=== PATIENT | male | born 1940 | race Caucasian/White ===

== ENCOUNTER 2018-10-06 15:55 | Inpatient (IN) | payer MEDICAID, MEDICARE ==
[~2018-10-06] VITALS: Ht 182.9 cm; Wt 77.1 kg
[2018-10-06 16:24] LABS: BASOPHILS # (AUTO) 0.1 K/uL (0.0-8.0); BASOPHILS % (AUTO) 0.8 % (0.0-2.0); EOSINOPHILS # (AUTO) 0.1 K/uL (0.0-0.7); EOSINOPHILS % (AUTO) 0.5 % (0.0-7.0); HEMATOCRIT 49.2 % (36.7-47.1); HEMOGLOBIN 16.7 g/dL (12.5-16.3); LYMPHOCYTES # (AUTO) 2.1 K/uL (20.0-40.0); LYMPHOCYTES % (AUTO) 21.7 % (20.5-51.5); MEAN CORPUSCULAR HEMOGLOBIN 35.1 uug (23.8-33.4); MEAN CORPUSCULAR HGB CONC 34 g/dL (32.5-36.3); MEAN CORPUSCULAR VOLUME 103.8 fL (73.0-96.2); MONOCYTES # (AUTO) 1.2 K/uL (2.0-10.0); MONOCYTES % (AUTO) 12.1 % (0.0-11.0); NEUTROPHILS # (AUTO) 6.4 K/uL (1.8-8.9); NEUTROPHILS % (AUTO) 64.9 % (38.5-71.5); PLATELET COUNT (AUTO) 165 K/uL (152-348); RED BLOOD CELL COUNT(AUTO) 4.74 MIL/uL (4.06-5.63); WHITE BLOOD COUNT (AUTO) 9.9 K/uL (3.6-10.2)
[2018-10-06] MEDS ORDERED: TAMS-3 PO (16:30)
[2018-10-06] MEDS ORDERED: DIGO250T PO (16:30)
[2018-10-06] MEDS ORDERED: LISI10TA5 PO (16:30)
[2018-10-06] MEDS ORDERED: FLUT1DIS27 IH (16:30)
[2018-10-06] MEDS ORDERED: DILT240C2 PO (16:30)
[2018-10-06] MEDS ORDERED: DIVA500T2 PO (16:30)
[2018-10-06] MEDS ORDERED: COLC0.6C3 PO (16:30)
[2018-10-06] MEDS ORDERED: ACET-2154 PO ×2 (16:38→17:37)
[2018-10-06] MEDS ORDERED: RIVA20TA PO (16:38)
[2018-10-06] MEDS ORDERED: IPRA3AMP23 IH (16:38)
[2018-10-06] MEDS ORDERED: DIVA125T2 PO (16:38)
[2018-10-06 16:42] LABS: CARBON DIOXIDE 28 mmol/L (21-32); CHLORIDE 103 mmol/L (98-107); CREATININE 2.1 mg/dL (0.6-1.3); GLUCOSE 98 mg/dL (74-106); POTASSIUM 5.1 mmol/L (3.5-5.1); UREA NITROGEN, BLOOD 33 mg/dL (7-18)
[2018-10-06 16:52] LABS: ALANINE AMINOTRANSFERASE 35 U/L (16-63); ALKALINE PHOSPHATASE 56 U/L (50-136); ASPARTATE AMINOTRANSFERASE 32 U/L (15-37); BILIRUBIN,DIRECT 0.2 mg/dL (0.0-0.2); BILIRUBIN,TOTAL 0.7 mg/dL (0.2-1.0); TOTAL PROTEIN, SERUM 8.4 g/dL (6.4-8.2)
[2018-10-06 16:54] LABS: ETHANOL < 3 MG/DL (0-0)
[2018-10-06 16:55] LABS: ACETAMINOPHEN < 2.0 ug/mL (10-30)
--- NOTE | 2018-10-06 17:35 | NUR ---
PT IS IN ROOM #1A. DR VASQUEZ EVALUATED THE PT.
[2018-10-06] MEDS ORDERED: BISA10SU11 RC (17:37)
[2018-10-06] MEDS ORDERED: MAGN400O6 PO (17:37)
[2018-10-06] MEDS ORDERED: LOPE2CAP PO (17:37)
[2018-10-06] MEDS ORDERED: MELA5TAB PO (17:37)
[2018-10-06] MEDS ORDERED: MAG355OR18 PO (17:37)
--- NOTE | 2018-10-06 19:04 | NUR ---
PT WAS EVALUATED BY CRISIS STUDIO MANAGER VANESSA MORALES. PT IS GOING TO BE PLACED TO MHU VOLUNTARY ADMISSION. REPORT GIVEN TO ETHANOL QUALITY LEADER RN.
[2018-10-06] MEDS ORDERED: MAG HYDROX/AL HYDROX/SIMETH 30 ML LIQUID UDC PO PRN (20:15)
[2018-10-06] MEDS ORDERED: ACETAMINOPHEN 325 MG TABLET PO PRN (20:15)
[2018-10-06] MEDS ORDERED: MAGNESIUM HYDROXIDE 30 ML LIQUID UDC PO PRN (20:15)
[2018-10-06 20:30] VITALS: BP 103/69
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
[2018-10-06] MEDS: TEMAZEPAM 7.5 MG CAPSULE PO PRN (21:47)
[2018-10-06] MEDS ORDERED: Medication Not On Formulary EA (Rivaroxaban (Xarelto) 10 MG) PO SCH (22:00)
[2018-10-06] MEDS ORDERED: BISACODYL 10 MG SUPP.RECT RC PRN (22:00)
[2018-10-07 08:05] VITALS: BP 144/94
[2018-10-07 08:28] LABS: BASOPHILS # (AUTO) 0.1 K/uL (0.0-8.0); BASOPHILS % (AUTO) 0.7 % (0.0-2.0); EOSINOPHILS # (AUTO) 0.1 K/uL (0.0-0.7); EOSINOPHILS % (AUTO) 1.1 % (0.0-7.0); HEMATOCRIT 48.5 % (36.7-47.1); HEMOGLOBIN 16.4 g/dL (12.5-16.3); LYMPHOCYTES % (AUTO) 27.1 % (20.5-51.5); MEAN CORPUSCULAR HEMOGLOBIN 35.3 uug (23.8-33.4); MEAN CORPUSCULAR HGB CONC 34 g/dL (32.5-36.3); MEAN CORPUSCULAR VOLUME 104.5 fL (73.0-96.2); MONOCYTES # (AUTO) 1.4 K/uL (2.0-10.0); MONOCYTES % (AUTO) 12.7 % (0.0-11.0); NEUTROPHILS # (AUTO) 6.4 K/uL (1.8-8.9); NEUTROPHILS % (AUTO) 58.4 % (38.5-71.5); PLATELET COUNT (AUTO) 166 K/uL (152-348); RED BLOOD CELL COUNT(AUTO) 4.64 MIL/uL (4.06-5.63); WHITE BLOOD COUNT (AUTO) 10.9 K/uL (3.6-10.2)
[2018-10-07 08:43] LABS: ALANINE AMINOTRANSFERASE 34 U/L (16-63); ALKALINE PHOSPHATASE 53 U/L (50-136); ASPARTATE AMINOTRANSFERASE 30 U/L (15-37); BILIRUBIN,TOTAL 0.8 mg/dL (0.2-1.0); CARBON DIOXIDE 27 mmol/L (21-32); CHLORIDE 104 mmol/L (98-107); CHOLESTEROL 232 mg/dL (<200); CREATININE 1.8 mg/dL (0.6-1.3); GLUCOSE 86 mg/dL (74-106); GLUCOSE FASTING 86 mg/dL (70-115); HDL CHOLESTEROL 44 mg/dL (40-60); MAGNESIUM 1.9 mg/dL (1.8-2.4); POTASSIUM 4.4 mmol/L (3.5-5.1); TOTAL PROTEIN, SERUM 8.3 g/dL (6.4-8.2); TRIGLYCERIDES 130 MG/DL (30-150); UREA NITROGEN, BLOOD 31 mg/dL (7-18)
[2018-10-07 08:48] LABS: THYROID STIMULATING HORMONE 8.601 mIU/mL (0.358-3.740)
[2018-10-07] MEDS: DIVALPROEX 125 MG TABLET.DR PO SCH ×2 (08:52→17:27)
[2018-10-07] MEDS: FLUTICASONE/VILANTEROL 1 EACH BLST.W.DEV INH SCH (08:53)
[2018-10-07] MEDS: DILTIAZEM HCL CD 240 MG CAP.SR.24H PO SCH (08:53)
[2018-10-07] MEDS ORDERED: DIGOXIN 250 MCG TABLET PO SCH (09:00)
[2018-10-07] MEDS ORDERED: DIVALPROEX 125 MG TABLET.DR PO SCH (09:00)
[2018-10-07 10:33] LABS: DIGOXIN 1.1 ng/mL (0.9-2.0)
[2018-10-07] MEDS: DIGOXIN 250 MCG TABLET PO SCH (13:02)
[2018-10-07 15:14] VITALS: BP 142/91
[2018-10-07] MEDS: RIVAROXABAN 10 MG TABLET PO SCH (17:28)
[2018-10-07 19:12] LABS: *BILIRUBIN,URIN NEGATIVE (NEGATIVE); *BLOOD, URINE NEGATIVE (NEGATIVE); *CLARITY,URINE CLEAR (CLEAR); *COLOR,URINE YELLOW (YELLOW); *KETONES,URINE NEGATIVE (NEGATIVE); *UROBILINOGEN,URINE 0.2 E.U./dl (NORMAL); LEUKOCYTE ESTERASE ,URINE NEGATIVE (NEGATIVE); NITRITE, URINE NEGATIVE (NEGATIVE); PH,URINE 5.5 (5.0-8.0); UGLUCOSE NEGATIVE (NEGATIVE)
[2018-10-07 19:26] LABS: *AMPHETAMINE, URINE NEGATIVE (NEGATIVE); *BARBITURATE, URINE NEGATIVE (NEGATIVE); *CANNABINOID, URINE NEGATIVE (NEGATIVE); *COCCAINE, URINE NEGATIVE (NEGATIVE); *OPIATE, URINE NEGATIVE (NEGATIVE); *PHENCYCLIDINE SCREEN,URINE NEGATIVE (NEGATIVE)
[2018-10-07 20:18] LABS: SQUAMOUS EPITHELIAL CELL,UR FEW /HPF (NONE SEEN); WBC,URINE 0-3 /HPF (0-3)
[2018-10-07 20:19] LABS: MUCUS,URINE FEW /LPF (0-FEW)
[2018-10-07] MEDS: TAMSULOSIN HCL 0.4 MG CAP.SR.24H PO SCH (20:27)
[2018-10-07] MEDS: TRAZODONE 50 MG TABLET PO SCH (20:27)
[2018-10-07] MEDS: DIVALPROEX 500 MG TABLET.DR PO SCH (20:27)
[2018-10-07 20:37] VITALS: BP 140/83
[2018-10-07] MEDS ORDERED: DIVALPROEX 500 MG TABLET.DR PO SCH (21:00)
[2018-10-07] MEDS: TEMAZEPAM 7.5 MG CAPSULE PO PRN (21:49)
--- NOTE | 2018-10-07 22:30 | NUR ---
received to care, watching tv with peers, pleasant upon approach. pt is socially appropriate. no inappropriate behaviors noted. compliant with medications and staff direction. PRN restoril was given at 2148, for insomnia. as of 2229, he appears to be asleep, in bed. no distress noted. will continue to monitor closely.
--- NOTE | 2018-10-08 06:00 | NUR ---
slept 6.0 hours.
[2018-10-08 07:30] VITALS: BP 145/87
[2018-10-08] MEDS: DIVALPROEX 125 MG TABLET.DR PO SCH ×2 (09:33→16:41)
[2018-10-08] MEDS: DILTIAZEM HCL CD 240 MG CAP.SR.24H PO SCH (09:33)
[2018-10-08] MEDS: DIGOXIN 250 MCG TABLET PO SCH (09:34)
[2018-10-08] MEDS: FLUTICASONE/VILANTEROL 1 EACH BLST.W.DEV INH SCH (09:35)
--- NOTE | 2018-10-08 14:45 | NUR ---
Initial Discharge Plan: Patient is a 78 year old male who currently resides at [facility] [[address], [place] [address]; ]. Per patient, he would like to return to facility when ready. coffee plantation worker to call and speak with study coordinator to confirm patient can return to facility when ready. coffee plantation worker will continue to collaborate with patient and MD on a safe and proper discharge.
[2018-10-08 16:00] VITALS: BP 130/77
[2018-10-08] MEDS: RIVAROXABAN 10 MG TABLET PO SCH (16:41)
[2018-10-08] MEDS: TAMSULOSIN HCL 0.4 MG CAP.SR.24H PO SCH (20:11)
[2018-10-08] MEDS: TRAZODONE 50 MG TABLET PO SCH (20:12)
[2018-10-08] MEDS: DIVALPROEX 500 MG TABLET.DR PO SCH (20:12)
[2018-10-08 20:28] VITALS: BP 155/80
[2018-10-08] MEDS: TEMAZEPAM 7.5 MG CAPSULE PO PRN (21:41)
--- NOTE | 2018-10-08 22:30 | NUR ---
received to care, watching tv with peers, pleasant upon approach. no inappropriate behaviors noted. compliant with medications and staff direction. PRN restoril was given at 2140, for insomnia. as of 2229, he remains awake. no distress noted. will continue to monitor closely.
[2018-10-08] MEDS: LORAZEPAM 0.5 MG TABLET PO PRN (22:41)
--- NOTE | 2018-10-08 22:41 | NUR ---
remains awake. appears slightly restless. PRN ativan was given at this time.
--- NOTE | 2018-10-08 23:30 | NUR ---
appears to be asleep. no distress noted.
[2018-10-09] MEDS: LORAZEPAM 0.5 MG TABLET PO PRN ×2 (02:42→20:04)
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
--- NOTE | 2018-10-09 06:30 | NUR ---
slept 5 hours. assisted with am care, and shower. no distress noted.
[2018-10-09 07:30] VITALS: BP 169/98
[2018-10-09] MEDS: DILTIAZEM HCL CD 240 MG CAP.SR.24H PO SCH (09:07)
[2018-10-09] MEDS: DIGOXIN 250 MCG TABLET PO SCH (09:07)
[2018-10-09] MEDS: FLUTICASONE/VILANTEROL 1 EACH BLST.W.DEV INH SCH (09:07)
[2018-10-09] MEDS: DIVALPROEX 125 MG TABLET.DR PO SCH ×2 (09:07→16:47)
--- NOTE | 2018-10-09 13:49 | NUR ---
still worker helper reached out to [facility] ([address], [facility] [id number] ) and requested to speak to staffing and scheduling coordinator. still worker helper was told admissions was gone for the day, sw requested to speak with LOS, sw was informed LOS was in a meeting. Social work will attempt to reach out to placement to verify if pt will be accepted back to facility once cleared.
--- NOTE | 2018-10-09 14:35 | NUR ---
Discharge planning: baking factory worker reached out to [facility] ([address], [facility] [address] ([phone]) and spoke with LOS Persaud, LOS stated that pt is welcome back to facility. LOS requested most recent consults, h&p, progress notes and medication prior to discharge.
[2018-10-09 16:00] VITALS: BP 139/79
[2018-10-09] MEDS: RIVAROXABAN 10 MG TABLET PO SCH (17:09)
--- NOTE | 2018-10-09 20:04 | NUR ---
PRN ativan, given for anxiety.
[2018-10-09] MEDS: TAMSULOSIN HCL 0.4 MG CAP.SR.24H PO SCH (20:05)
[2018-10-09 20:21] VITALS: BP 161/90
--- NOTE | 2018-10-09 21:00 | NUR ---
appears calmer, now. states good relief from ativan.
[2018-10-09] MEDS: DIVALPROEX 500 MG TABLET.DR PO SCH (21:39)
[2018-10-09] MEDS: TRAZODONE 50 MG TABLET PO SCH (21:39)
--- NOTE | 2018-10-09 22:00 | NUR ---
received to care, sitting on his bed, isolative, but pleasant upon approach. no inappropriate behaviors noted. compliant with medications and staff direction. as of 2199, he appears to be asleep. no distress noted. will continue to monitor closely.
[2018-10-10] MEDS: TEMAZEPAM 7.5 MG CAPSULE PO PRN (01:54)
--- NOTE | 2018-10-10 01:54 | NUR ---
pt is now awake; PRN restoril given for insomnia.
[2018-10-10 06:39] LABS: BASOPHILS # (AUTO) 0.1 K/uL (0.0-8.0); BASOPHILS % (AUTO) 0.7 % (0.0-2.0); EOSINOPHILS # (AUTO) 0.1 K/uL (0.0-0.7); EOSINOPHILS % (AUTO) 1.1 % (0.0-7.0); HEMATOCRIT 45.9 % (36.7-47.1); HEMOGLOBIN 15.9 g/dL (12.5-16.3); LYMPHOCYTES # (AUTO) 2.7 K/uL (20.0-40.0); LYMPHOCYTES % (AUTO) 26.1 % (20.5-51.5); MEAN CORPUSCULAR HEMOGLOBIN 35.9 uug (23.8-33.4); MEAN CORPUSCULAR HGB CONC 35 g/dL (32.5-36.3); MEAN CORPUSCULAR VOLUME 103.4 fL (73.0-96.2); MONOCYTES # (AUTO) 1.4 K/uL (2.0-10.0); MONOCYTES % (AUTO) 13.6 % (0.0-11.0); NEUTROPHILS % (AUTO) 58.5 % (38.5-71.5); PLATELET COUNT (AUTO) 167 K/uL (152-348); RED BLOOD CELL COUNT(AUTO) 4.44 MIL/uL (4.06-5.63); WHITE BLOOD COUNT (AUTO) 10.2 K/uL (3.6-10.2)
[2018-10-10 06:57] LABS: CARBON DIOXIDE 31 mmol/L (21-32); CHLORIDE 101 mmol/L (98-107); GLUCOSE 85 mg/dL (74-106); MAGNESIUM 1.7 mg/dL (1.8-2.4); POTASSIUM 4.4 mmol/L (3.5-5.1); UREA NITROGEN, BLOOD 33 mg/dL (7-18)
[2018-10-10 07:30] VITALS: BP 159/92
[2018-10-10] MEDS: DIVALPROEX 125 MG TABLET.DR PO SCH ×2 (08:54→17:07)
[2018-10-10] MEDS: DIGOXIN 250 MCG TABLET PO SCH (08:55)
[2018-10-10] MEDS: FLUTICASONE/VILANTEROL 1 EACH BLST.W.DEV INH SCH (08:56)
[2018-10-10] MEDS: DILTIAZEM HCL CD 240 MG CAP.SR.24H PO SCH (08:56)
[2018-10-10] MEDS ORDERED: TEMAZEPAM 7.5 MG CAPSULE PO PRN (12:00)
[2018-10-10 15:23] VITALS: BP 140/89
[2018-10-10] MEDS ORDERED: MAGNESIUM OXIDE 400 MG TABLET PO ONE (17:00)
[2018-10-10] MEDS: RIVAROXABAN 10 MG TABLET PO SCH (17:08)
[2018-10-10 21:49] VITALS: BP 143/95
[2018-10-10] MEDS: TRAZODONE 50 MG TABLET PO SCH (21:52)
[2018-10-10] MEDS: DIVALPROEX 500 MG TABLET.DR PO SCH (21:53)
[2018-10-10] MEDS: TAMSULOSIN HCL 0.4 MG CAP.SR.24H PO SCH (21:53)
[2018-10-10] MEDS: TEMAZEPAM 15 MG CAPSULE PO PRN (21:56)
[2018-10-11] MEDS: LORAZEPAM 0.5 MG TABLET PO PRN ×2 (00:14→05:33)
[2018-10-11 07:30] VITALS: BP 156/90
[2018-10-11 07:46] LABS: BASOPHILS # (AUTO) 0.1 K/uL (0.0-8.0); BASOPHILS % (AUTO) 0.7 % (0.0-2.0); EOSINOPHILS # (AUTO) 0.1 K/uL (0.0-0.7); EOSINOPHILS % (AUTO) 1.2 % (0.0-7.0); HEMATOCRIT 44.3 % (36.7-47.1); HEMOGLOBIN 15.1 g/dL (12.5-16.3); LYMPHOCYTES # (AUTO) 2.4 K/uL (20.0-40.0); MEAN CORPUSCULAR HEMOGLOBIN 35.4 uug (23.8-33.4); MEAN CORPUSCULAR HGB CONC 34 g/dL (32.5-36.3); MEAN CORPUSCULAR VOLUME 103.8 fL (73.0-96.2); MONOCYTES # (AUTO) 1.4 K/uL (2.0-10.0); MONOCYTES % (AUTO) 14.2 % (0.0-11.0); NEUTROPHILS % (AUTO) 59.9 % (38.5-71.5); PLATELET COUNT (AUTO) 160 K/uL (152-348); RED BLOOD CELL COUNT(AUTO) 4.27 MIL/uL (4.06-5.63)
[2018-10-11 08:12] LABS: ALANINE AMINOTRANSFERASE 31 U/L (16-63); ALKALINE PHOSPHATASE 49 U/L (50-136); ASPARTATE AMINOTRANSFERASE 29 U/L (15-37); BILIRUBIN,TOTAL 0.8 mg/dL (0.2-1.0); CARBON DIOXIDE 30 mmol/L (21-32); CHLORIDE 102 mmol/L (98-107); CREATINE KINASE, TOTAL 99 U/L (39-308); CREATININE 1.8 mg/dL (0.6-1.3); GLUCOSE 86 mg/dL (74-106); PHOSPHOROUS 2.8 mg/dL (2.5-4.9); POTASSIUM 4.7 mmol/L (3.5-5.1); TOTAL PROTEIN, SERUM 7.5 g/dL (6.4-8.2); UREA NITROGEN, BLOOD 33 mg/dL (7-18); VALPROIC ACID 77 ug/mL (50-100)
[2018-10-11] MEDS: DILTIAZEM HCL CD 240 MG CAP.SR.24H PO SCH (08:31)
[2018-10-11] MEDS: DIGOXIN 250 MCG TABLET PO SCH (08:31)
[2018-10-11] MEDS: DIVALPROEX 125 MG TABLET.DR PO SCH ×2 (08:31→16:29)
[2018-10-11] MEDS: FLUTICASONE/VILANTEROL 1 EACH BLST.W.DEV INH SCH (08:31)
[2018-10-11 16:00] VITALS: BP 164/84
[2018-10-11] MEDS: RIVAROXABAN 10 MG TABLET PO SCH (16:30)
[2018-10-11 20:13] VITALS: BP 168/95
[2018-10-11] MEDS: DIVALPROEX 500 MG TABLET.DR PO SCH (20:25)
[2018-10-11] MEDS: TAMSULOSIN HCL 0.4 MG CAP.SR.24H PO SCH (20:25)
[2018-10-11] MEDS: TRAZODONE 50 MG TABLET PO SCH (20:26)
[2018-10-11] MEDS: TEMAZEPAM 15 MG CAPSULE PO PRN (22:03)
--- NOTE | 2018-10-11 23:33 | NUR ---
RECEIVED PATIENT IN ACTIVITY ROOM WATCHING TV.HE WAS CALM BUT WITHDRAWN.HE DENIES PAIN OR DISCOMFORT BUT LATER C/O INABILITY TO SLEEP. AFTER ASSESSMENT TAB RESTORIL 15MG WAS GIVEN WITH FAIRLY GOOD EFFECT.COMPLIANT WITH STAFF FOR HIS CARE AND MEDICATIONS.WILL CONTINUE TO MONITOR.
--- NOTE | 2018-10-12 06:33 | NUR ---
HE SLEPT FOR APPROX.7:30HRS. ASSISTED WITH PERSONAL HYGEINE THIS MORNING.
[2018-10-12 07:30] VITALS: BP 126/82
[2018-10-12 08:16] LABS: BASOPHILS # (AUTO) 0.1 K/uL (0.0-8.0); BASOPHILS % (AUTO) 0.6 % (0.0-2.0); EOSINOPHILS # (AUTO) 0.1 K/uL (0.0-0.7); EOSINOPHILS % (AUTO) 0.9 % (0.0-7.0); HEMOGLOBIN 14.9 g/dL (12.5-16.3); LYMPHOCYTES # (AUTO) 2.2 K/uL (20.0-40.0); LYMPHOCYTES % (AUTO) 24.1 % (20.5-51.5); MEAN CORPUSCULAR HEMOGLOBIN 35.3 uug (23.8-33.4); MEAN CORPUSCULAR HGB CONC 34 g/dL (32.5-36.3); MEAN CORPUSCULAR VOLUME 104.7 fL (73.0-96.2); MONOCYTES # (AUTO) 1.2 K/uL (2.0-10.0); MONOCYTES % (AUTO) 12.7 % (0.0-11.0); NEUTROPHILS # (AUTO) 5.7 K/uL (1.8-8.9); NEUTROPHILS % (AUTO) 61.7 % (38.5-71.5); PLATELET COUNT (AUTO) 164 K/uL (152-348); WHITE BLOOD COUNT (AUTO) 9.3 K/uL (3.6-10.2)
[2018-10-12] MEDS: DILTIAZEM HCL CD 240 MG CAP.SR.24H PO SCH (08:31)
[2018-10-12] MEDS: DIVALPROEX 125 MG TABLET.DR PO SCH ×2 (08:31→16:39)
[2018-10-12] MEDS: DIGOXIN 250 MCG TABLET PO SCH (08:31)
[2018-10-12] MEDS: FLUTICASONE/VILANTEROL 1 EACH BLST.W.DEV INH SCH (08:32)
[2018-10-12 08:40] LABS: ALANINE AMINOTRANSFERASE 30 U/L (16-63); ALKALINE PHOSPHATASE 46 U/L (50-136); ASPARTATE AMINOTRANSFERASE 33 U/L (15-37); BILIRUBIN,TOTAL 0.9 mg/dL (0.2-1.0); CARBON DIOXIDE 30 mmol/L (21-32); CHLORIDE 104 mmol/L (98-107); CREATININE 1.8 mg/dL (0.6-1.3); GLUCOSE 83 mg/dL (74-106); MAGNESIUM 1.8 mg/dL (1.8-2.4); PHOSPHOROUS 2.7 mg/dL (2.5-4.9); POTASSIUM 4.5 mmol/L (3.5-5.1); TOTAL PROTEIN, SERUM 7.2 g/dL (6.4-8.2); UREA NITROGEN, BLOOD 32 mg/dL (7-18)
[2018-10-12 15:55] VITALS: BP 150/76
[2018-10-12] MEDS: RIVAROXABAN 10 MG TABLET PO SCH (16:44)
[2018-10-12 20:00] VITALS: BP 148/90
[2018-10-12] MEDS: DIVALPROEX 500 MG TABLET.DR PO SCH (20:15)
[2018-10-12] MEDS: TAMSULOSIN HCL 0.4 MG CAP.SR.24H PO SCH (20:15)
[2018-10-12] MEDS: TRAZODONE 50 MG TABLET PO SCH (20:15)
[2018-10-12] MEDS: TEMAZEPAM 15 MG CAPSULE PO PRN (22:39)
[2018-10-13 07:06] LABS: A/G RATIO 1.2 (0.7-1.7); ALBUMIN 3.9 g/dL (2.9-4.4); ALPHA-1-GLOBULIN 0.2 g/dL (0.0-0.4); ALPHA-2-GLOBULIN 0.8 g/dL (0.4-1.0); BETA GLOBULIN 1.1 g/dL (0.7-1.3); GAMMA GLOBULIN 1.2 g/dL (0.4-1.8); GLOBULIN, TOTAL 3.2 g/dL (2.2-3.9); M-SPIKE Not Observed g/dL (Not Observed)
[2018-10-13 07:30] VITALS: BP 159/89
[2018-10-13] MEDS: DIGOXIN 250 MCG TABLET PO SCH (08:38)
[2018-10-13] MEDS: DIVALPROEX 125 MG TABLET.DR PO SCH ×2 (08:38→16:42)
[2018-10-13] MEDS: FLUTICASONE/VILANTEROL 1 EACH BLST.W.DEV INH SCH (08:39)
[2018-10-13] MEDS: DILTIAZEM HCL CD 240 MG CAP.SR.24H PO SCH (08:39)
--- NOTE | 2018-10-13 09:47 | NUR ---
DC NOTE: Patient will be discharged back to [facility] [[address], [place] [address]; ] and transportation will be provided by the facility at 4:30pm. Transportation was arranged by admissions clinician, Madelin, who states the facility is ready to accept the patient back today. Patient is AxOx3-4, denies suicidal ideations, is able to plan for self-care, and is agreeable to the discharge plan. Patient will be followed by Dr. Pisano [marking machine tender] and Dr. Powell [psychiatrist] at the facility. Patient has been provided with mental health resources including [facility] [[address], [place] [address]; ], [facility] Crisis Line [ ], and National Suicide Prevention Lifeline [ ].
[2018-10-13 15:44] VITALS: BP 167/74
[2018-10-13] MEDS: RIVAROXABAN 10 MG TABLET PO SCH (16:44)
--- NOTE | 2018-10-13 18:15 | NUR ---
GPS: Nursing Notes: Discharge Notes: Patient is awake and responding to his name, cooperative with nursing care, compliant with his medications, following staff directions, appropriate interactions with peers and staff, A/Ox4, denies any SI/HI, denies any AH/VH, denies any pain or discomfort, denies any SOB, discharge to [facility] at [address], [place] [address] , report given to facility's nurse - MILES Og, took all his belonging with him, picked by facility's own transportation. Patient will be followed by Dr. Pisano [matrix bath operator] and Dr. Powell [psychiatrist] at the facility. Patient has been provided with mental health resources including [facility] [[address], [place] [address]; ], [facility] Crisis Line [ ], and National Suicide Prevention Lifeline [ ].
== END 2018-10-13 18:15 | DRG 885 ==
LOC: ER 15:59 → GPS 20:02
PROVIDERS: ADMIT Psychiatry & Neurology Psychiatry; ATTEND Nurse Practitioner Acute Care
DX: F39 Unspecified mood [affective] disorder (principal); N17.0 Acute kidney failure with tubular necrosis; N18.3 Chronic kidney disease, stage 3 (moderate); E44.1 Mild protein-calorie malnutrition; N40.0 Benign prostatic hyperplasia without lower urinary tract symptoms; M10.9 Gout, unspecified; F65.9 Paraphilia, unspecified; F20.9 Schizophrenia, unspecified; Z68.23 Body mass index [BMI] 23.0-23.9, adult; G40.909 Epilepsy, unspecified, not intractable, without status epilepticus; I48.0 Paroxysmal atrial fibrillation; Z79.01 Long term (current) use of anticoagulants; Z79.899 Other long term (current) drug therapy; J44.9 Chronic obstructive pulmonary disease, unspecified; E03.9 Hypothyroidism, unspecified; E78.5 Hyperlipidemia, unspecified; I12.9 Hypertensive chronic kidney disease with stage 1 through stage 4 chronic kidney disease, or unspecified chronic kidney disease; T46.4X5A Adverse effect of angiotensin-converting-enzyme inhibitors, initial encounter; Y92.129 Unspecified place in nursing home as the place of occurrence of the external cause; E86.9 Volume depletion, unspecified; G47.00 Insomnia, unspecified
CPT/HCPCS: 36415; 71045; 76770; 80164; 80307; 83735; 83970; 84100; 84155; 84165; 84443; 84481; 85025; A4663; G0480; G0480-TC